=== PATIENT | female | born 2000 | race Hispanic/Latino ===

== ENCOUNTER 2021-04-17 15:30 | Emergency (ER) | payer SELFPAY ==
[~2021-04-17] VITALS: Ht 154.9 cm; Wt 54.4 kg
== END 2021-04-17 18:00 | disposition home or self-care (01) ==
LOC: ER 15:42
DX: U07.1 COVID-19 (principal)
CPT/HCPCS: 99283; U0002

== ENCOUNTER 2024-07-05 13:18 | Emergency (ER) | payer SELFPAY ==
[~2024-07-05] VITALS: Ht 157.5 cm; Wt 59.0 kg
[2024-07-05 14:35] VITALS: PULSE 72; RESP 16; TEMP 98.8; O2SAT 100
== END 2024-07-05 15:22 | disposition home or self-care (01) ==
LOC: ER 14:23
DX: M54.50 Low back pain, unspecified (principal); B34.9 Viral infection, unspecified; R10.30 Lower abdominal pain, unspecified; R51.9 Headache, unspecified
CPT/HCPCS: 99282